=== PATIENT | female | born 1990 | race African-American/Black ===

== ENCOUNTER 2018-11-05 21:26 | Emergency (ER) | payer SELFPAY ==
[2018-11-05] MEDS ORDERED: Ketorolac Tromethamine 30 MG/ML VIAL ONE (22:40)
== END 2018-11-05 22:50 | disposition home or self-care (01) ==
LOC: ERS 21:26
DX: K03.81 Cracked tooth (principal); K02.9 Dental caries, unspecified
CPT/HCPCS: 99282; J1885

== ENCOUNTER 2023-07-01 22:35 | Emergency (ER) | payer OTHER | END 2023-07-01 23:38 | disposition home or self-care (01) | LOC: ERS 22:35 | DX: K04.7 Periapical abscess without sinus (principal) | CPT/HCPCS: 99283 ==